=== PATIENT | male | born 1965 | race American Indian/Alaskan Native ===

== ENCOUNTER 2017-01-03 09:44 | Emergency (ER) | payer SELFPAY ==
[2017-01-03 10:11] VITALS: BP 131/78
[2017-01-03] MEDS ORDERED: NACL 0.9% 1000 ML 1,000 ML IV ONE (10:12)
[2017-01-03 10:37] LABS: Basophils % (Auto) 0.8 % (0.0-1.8); Eosinophils % (Auto) 1.7 % (0.0-4.3); Hematocrit 23.1 % (35.5-45.6); Hemoglobin 6.9 gm/dl (11.8-15.2); Mean Corpuscular HGB Conc 30 % (32-34); Mean Corpuscular Hemoglobin 21 pg (28-32); Mean Corpuscular Volume 70 fl (84-94); Platelet Count 249 K/mm3 (140-440); Red Cell Distribution Width 19.2 % (13.2-15.2); White Blood Count 4.6 K/mm3 (4.5-11.0)
[2017-01-03 10:49] LABS: INR 1.01 (0.87-1.13)
[2017-01-03 10:50] LABS: Partial Thromboplastin Time 28.8 Sec. (24.2-36.6)
[2017-01-03 10:52] LABS: Alanine Aminotransferase 16 units/L (7-56); Albumin 4.1 g/dL (3.9-5); Albumin/Globulin Ratio 1.3 %; Alkaline Phosphatase 44 units/L (35-129); Anion Gap 15 mmol/L; BUN/Creatinine Ratio 13; Blood Urea Nitrogen 9 mg/dL (9-20); Calcium 8.5 mg/dL (8.4-10.2); Carbon Dioxide 25 mmol/L (22-30); Chloride 102.4 mmol/L (98-107); Glucose 77 mg/dL (75-100); Lipase 31 units/L (13-60); Potassium 3.2 mmol/L (3.6-5.0); Sodium 139 mmol/L (137-145); Total Protein 7.2 g/dL (6.3-8.2)
== END 2017-01-03 10:30 | disposition left against medical advice (07) ==
LOC: ED 09:44
DX: D64.9 Anemia, unspecified (principal); Z53.21 Procedure and treatment not carried out due to patient leaving prior to being seen by health care provider
CPT/HCPCS: 36415; 80053; 83690; 85025; 85610; 85730; 86850; 86900; 86901; J7030

== ENCOUNTER 2017-08-21 08:53 | Inpatient (IN) | payer SELFPAY ==
[2017-08-21] MEDS ORDERED: NACL 0.9% 1000 ML 1,000 ML IV ONE (09:04)
[2017-08-21 10:03] LABS: Basophils % (Auto) 0.6 % (0.0-1.8); Eosinophils # (Auto) 0.1 K/mm3 (0.0-0.4); Eosinophils % (Auto) 1.1 % (0.0-4.3); Lymphocytes % (Auto) 16.1 % (13.4-35.0); Mean Corpuscular HGB Conc 30 % (32-34); Monocytes # (Auto) 0.6 K/mm3 (0.0-0.8); Monocytes % (Auto) 9.2 % (0.0-7.3); Platelet Count 291 K/mm3 (140-440); Red Blood Count 2.51 M/mm3 (3.65-5.03); Red Cell Distribution Width 19.5 % (13.2-15.2)
[2017-08-21 10:14] LABS: INR 0.9 (0.87-1.13); Mean Corpuscular Hemoglobin 20 pg (28-32); Mean Corpuscular Volume 69 fl (84-94)
[2017-08-21 10:16] LABS: Hematocrit 17.3 % (35.5-45.6); Hemoglobin 5.1 gm/dl (11.8-15.2)
[2017-08-21 10:20] LABS: Alanine Aminotransferase 8 units/L (7-56); Albumin 4.1 g/dL (3.9-5); BUN/Creatinine Ratio 17; Blood Urea Nitrogen 12 mg/dL (9-20); Calcium 8.6 mg/dL (8.4-10.2); Hemolysis Index 0; Lipase 38 units/L (13-60)
[2017-08-21] MEDS ORDERED: NACL 0.9% 500 ML 500 ML IV ONE (10:24)
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
[2017-08-21] MEDS ORDERED: TYLENOL PO PRN (12:13)
[2017-08-21] MEDS ORDERED: ZOFRAN IV PRN (12:13)
[2017-08-21] MEDS ORDERED: AMBIEN PO PRN (12:13)
[2017-08-21] MEDS ORDERED: MIRALAX 3350 PO PRN (12:13)
--- NOTE | 2017-08-21 12:18 | History and Physical Report ---
History of Present Illness Date of examination: 08/21/17 Date of admission: 08/21/17 11:44 Chief complaint: SOB and blood in stool History of present illness: Mr. Syed is a 51 year-old man with history of diet controlled hypertension, tobacco dependency, alcohol abuse, AOCD, asthma, HIV and hemorrhoids s/p banding (~8 months ago) who presents to [facility] ED with progressive worsening constant exertional shortness of breath for 5 days without aggravating or relieving factors associated with painless intermittent small streaks of bright red blood on tissue paper after bowel movement x 2-3 weeks. He denies chest pain , fever, chills, orthopnea, rectal pains, abd pains, n/v. He reports being compliant with HIV medication which was recently changed per his Infectious Disease doctor. He reports normal CD4+ count, undetectable viral load. PMH: as hpi, EGD and sigmoidoscopy 2014 with 3 hemorrhoid bands placed; this history is confusing because he reports having banding here ~8 months ago. PSH: EGD and sigmoidoscopy SH: tobacco smoking, 1/2ppd, 1 pint of alcohol per day, he drinks [place] vodka, or Cherri etc.. denies drug abuse FH: Brother recently had heart attack in his 50s ROS: Constitutional: denies: fever ENT: denies: throat or neck pain Respiratory: denies: cough, shortness of breath Cardiovascular: denies: chest pain Endocrine: denies unexplained weight loss or gain Gastrointestinal: denies: abdominal pain, nausea Genitourinary: denies: dysuria Rectal: +bleeding, Musculoskeletal: denies swelling, myaglia, muscle weakness Skin: denies: rash Neurological: denies: headache Hematological/Lymphatic: denies: easy bleeding or easy bruising Allergic/Immunologic: no urticaria, no allergic rhinitis, no anaphylaxis Psych: denies sadness or hopelessness, SI/HI Medications and Allergies Allergies Allergy/AdvReac Type Severity Reaction Status Date / Time sulfamethoxazole Allergy Itching Verified 08/21/17 12:29 [From Bactrim] trimethoprim [From Bactrim] Allergy Itching Verified 08/21/17 12:29 Home Medications Medication Instructions Recorded Confirmed Last Taken Type Famotidine [Pepcid] 20 mg PO BID #20 tablet 06/07/15 Unknown Rx Active Meds: Active Medications Sodium Chloride (Nacl 0.9% 1000 Ml) 1,000 mls @ 250 mls/hr IV ONCE ONE Stop: 08/21/17 13:03 Last Admin: 08/21/17 11:35 Dose: Not Given Exam - Physical Exam Narrative exam: GEN: WDWN, NAD, Awake, Alert, Orientated x 3 HEENT: NCAT, EOMI, PERRL, OP Clear NECK: supple, no adenopathy, no thyromegaly, no JVD CVS/HEART: RRR, normal S1S2, pulses present bilaterally CHEST/LUNGS: CTA B, Symmetrical chest expansion, good air entry bilaterally GI/Abdomen: soft, NTND, good bowel sounds, no guarding or rebound /Bladder: no suprapubic tenderness, no CVA or paraspinal tenderness EXT/Skin: no c/c/e, no obvious rash MSK: FROM x 4 Neuro: CN 2-12 grossly intact, no new focal deficits Psych: calm - Constitutional Vitals: Temp Pulse Resp BP Pulse Ox 98.0 F 71 18 147/60 98 08/21/17 11:47 08/21/17 11:47 08/21/17 11:47 08/21/17 11:47 08/21/17 11:47 Results - Labs CBC & Chem 7: 08/21/17 09:23 08/21/17 09:23 Labs: Abnormal lab results 08/21/17 08/21/17 08/21/17 Range/Units 09:23 09:23 09:23 RBC 2.51 L (3.65-5.03) M/mm3 Hgb 5.1 L* (11.8-15.2) gm/dl Hct 17.3 L* (35.5-45.6) % MCV 69 L (84-94) fl MCH 20 L (28-32) pg MCHC 30 L (32-34) % RDW 19.5 H (13.2-15.2) % [place] % (Auto) 9.2 H (0.0-7.3) % Lymph # 1.0 L (1.2-5.4) K/mm3 Seg Neutrophils % 73.0 H (40.0-70.0) % Creatinine 0.7 L (0.8-1.5) mg/dL Crossmatch See Detail Assessment and Plan Mr. Syed is a 51 year-old man with history of diet controlled hypertension, tobacco dependency, alcohol abuse, AOCD, asthma, HIV and hemorrhoids s/p banding (~8 months ago) who presents to [facility] ED with progressive worsening constant exertional shortness of breath for 5 days without aggravating or relieving factors associated with painless intermittent small streaks of bright red blood on tissue paper after bowel movement x 2-3 weeks. He denies chest pain , fever, chills, orthopnea, rectal pains, abd pains, n/v. He reports being compliant with HIV medication which was recently changed per his Infectious Disease doctor. He reports normal CD4+ count, undetectable viral load. +FOBT per ED physician with brown stool. Hgb 5.1 * Date: 11/26/14 16:49 Pre-op diagnosis: Iron deficiency anemia, bleeding fro external hemorrhoids, Post-op diagnosis: same Findings: Normal EGD.Sigmoidoscopy to the rectosigmoid normal except thrombosed external hemorrhoids and large internal hemorrhoids. 3 bands placed. No bleeding with either procedure. Anesthesia: MAC Estimated blood loss: none Pathology: none Condition: stable Disposition: floor -Acute on chronic blood loss anemia, possibly related to hemorrhoids: consult GI , transfuse pRBC -GRANADO related to symptomatic anemia: monitor on remote tele for 24 hours, treat the anemia with blood -HIV, he doesn't know his medications: Asked the nurse to call his pharmacy, continue his home antiviral -Tobacco dependency: counseling done, offered nicotine patch -Alcohol abuse: treat with CIWA protocol and thiamine, watch closely for withdraw on remote tele -Iron deficiency anemia: treat with PRBC -DVT prophylaxis: scd only due to anemia stat Transfuse blood and repeat h/h CCT 34 minutes
[2017-08-21] MEDS ORDERED: NACL 0.9% 500 ML 500 ML IV SCH ×2 (14:42→23:45)
[2017-08-21] MEDS ORDERED: HALDOL IV PRN (17:29)
[2017-08-21] MEDS ORDERED: ATIVAN IV PRN ×3 (17:29)
[2017-08-21] MEDS: HABITROL TD SCH ×3 (18:11→22:27)
--- NOTE | 2017-08-21 19:15 | Gastroenterology Consultation ---
History of Present Illness - Reason for Consult Consult date: 08/21/17 rectal bleeding Requesting physician: JANI SINGH - History of Present Illness The patient is a 51-year-old man with a history of hemorrhoidal bleeding in the past who reports that he has had significant hematochezia for the last 3 weeks. He describes brown stool and passage of bright red blood in the commode and on the toilet tissue of sizable amounts at times. He ran out of energy and came severely fatigued and short of breath. He was admitted with severe anemia with a hemoglobin of 5.1. He had a colonoscopy with hemorrhoid banding in 2014 by the records at this hospital. Apparently he did fairly well with minimal bleeding after this procedure until recently. He does report having to push his hemorrhoids back in regularly. No family history of colon cancer. No history of inflammatory bowel disease. Denies weight loss, constipation. He does smoke and has significant alcohol use and 1/2 pint of liquor on a daily basis. Past History Past Medical History: No medical history Past Surgical History: No surgical history Social history: smoking, alcohol abuse Family history: CAD Medications and Allergies Allergies Allergy/AdvReac Type Severity Reaction Status Date / Time sulfamethoxazole Allergy Itching Verified 08/21/17 12:29 [From Bactrim] trimethoprim [From Bactrim] Allergy Itching Verified 08/21/17 12:29 Home Medications Medication Instructions Recorded Confirmed Last Taken Type Famotidine [Pepcid] 20 mg PO BID #20 tablet 06/07/15 Unknown Rx Active Meds: Active Medications Acetaminophen (Tylenol) 650 mg PO Q6H PRN PRN Reason: Non Cardiac Pain or Temp>100.5 Haloperidol Lactate (Haldol) 5 mg IV Q1H PRN PRN Reason: Unrespon. to mult. doses BZD's Sodium Chloride (Nacl 0.9% 500 Ml) 500 mls @ 0 mls/hr IV ONCE STELLA Stop: 08/21/17 23:00 Lorazepam (Ativan) 2 mg IV Q1H PRN PRN Reason: CIWA-Ar 8-15 Lorazepam (Ativan) 4 mg IV Q1H PRN PRN Reason: CIWA-Ar 16-25 Lorazepam (Ativan) 4 mg IV Q15MIN PRN PRN Reason: CIWA-Ar >25 Nicotine (Habitrol) 14 mg TD Q24H STELLA Last Admin: 08/21/17 18:11 Dose: 14 mg Ondansetron HCl (Zofran) 4 mg IV Q4H PRN PRN Reason: Nausea And Vomiting Pantoprazole Sodium (Protonix) 40 mg PO QDAY [facility] Polyethylene Glycol (Miralax 3350) 17 gm PO QDAY PRN PRN Reason: Constipation Thiamine HCl (Vitamin B-1) 100 mg PO QDAY [facility] Zolpidem Tartrate (Ambien) 5 mg PO QHS PRN PRN Reason: Sleep Review of Systems - Review of Systems Constitutional: no weight loss, no weight gain, no fever, no chills Eyes: no change in vision Ears, Nose, Throat: no decreased hearing, no difficulty swallowing Breasts: deferred Cardiovascular: shortness of breath, no chest pain Respiratory: shortness of breath, no cough, no wheezing Gastrointestinal: hematochezia, no abdominal pain, no nausea, no vomiting, no diarrhea, no constipation, no change in bowel habits, no hematemesis Rectal: bleeding, hemorrhoids, no pain Male Genitourinary: deferred Musculoskeletal: no gait dysfunction, no joint pain, no muscle pain Integumentary: no deferred, no rash, no pruritis Neurological: head injury, no paralysis, no weakness Psychiatric: no anxiety Hematologic/Lymphatic: no easy bruising Allergic/Immunologic: no wheezing Exam - Constitutional Vital Signs: Temp Pulse Resp BP Pulse Ox 97.8 F 60 18 119/76 100 08/21/17 17:34 08/21/17 17:34 08/21/17 17:34 08/21/17 17:34 08/21/17 17:34 General appearance: no acute distress, well-nourished - EENT Eyes: PERRL ENT: hearing intact, clear oral mucosa, dentition normal - Neck Neck: supple, normal ROM, no masses or JVD - Respiratory Respiratory effort: normal Respiratory: bilateral: CTA - Breasts Breasts: deferred - Cardiovascular Rhythm: regular Heart Sounds: Present: S1 & S2. Absent: gallop, rub Extremities: pulses intact, No edema, normal color, Full ROM - Gastrointestinal General gastrointestinal: Present: soft, non-tender, non-distended, normal bowel sounds. Absent: hepatomegaly, splenomegaly, mass Rectal Exam: normal exam-external/orifice - Genitourinary Male Genitourinary: deferred - Integumentary Integumentary: Present: clear, warm, dry - Musculoskeletal Musculoskeletal: normal - Neurologic Neurological: alert and oriented x3 - Psychiatric Psychiatric: appropriate mood/affect, intact judgment & insight, memory intact - Labs CBC & Chem 7: 08/21/17 09:23 08/21/17 09:23 Lab Results: Laboratory Results - last 24 hr 08/21/17 08/21/17 08/21/17 09:23 09:23 09:23 WBC 6.1 RBC 2.51 L Hgb 5.1 L* Hct 17.3 L* MCV 69 L MCH 20 L MCHC 30 L RDW 19.5 H Plt Count 291 Lymph % (Auto) 16.1 [place] % (Auto) 9.2 H Eos % (Auto) 1.1 Baso % (Auto) 0.6 Lymph # 1.0 L [place] # 0.6 Eos # 0.1 Baso # 0.0 Seg Neutrophils % 73.0 H Seg Neutrophils # 4.4 PT 12.6 INR 0.90 APTT 25.0 Sodium 142 Potassium 3.6 Chloride 101.9 Carbon Dioxide 24 Anion Gap 20 BUN 12 Creatinine 0.7 L Estimated GFR > 60 BUN/Creatinine Ratio 17 Glucose 83 Calcium 8.6 Total Bilirubin 0.30 AST 27 ALT 8 Alkaline Phosphatase 40 Troponin T Total Protein 7.1 Albumin 4.1 Albumin/Globulin Ratio 1.4 Lipase 38 Blood Type Antibody Screen Crossmatch 08/21/17 08/21/17 09:23 09:23 WBC RBC Hgb Hct MCV MCH MCHC RDW Plt Count Lymph % (Auto) [place] % (Auto) Eos % (Auto) Baso % (Auto) Lymph # [place] # Eos # Baso # Seg Neutrophils % Seg Neutrophils # PT INR APTT Sodium Potassium Chloride Carbon Dioxide Anion Gap BUN Creatinine Estimated GFR BUN/Creatinine Ratio Glucose Calcium Total Bilirubin AST ALT Alkaline Phosphatase Troponin T < 0.010 Total Protein Albumin Albumin/Globulin Ratio Lipase Blood Type B POSITIVE Antibody Screen Negative Crossmatch See Detail Assessment and Plan - Patient Problems (1) Anemia Current Visit: Yes Status: Acute Qualifiers: Anemia type: iron deficiency Iron deficiency anemia type: chronic blood loss Qualified Code(s): D50.0 - Iron deficiency anemia secondary to blood loss (chronic) Plan to address problem: Severe anemia, now status post transfusion. (2) Internal bleeding hemorrhoids Current Visit: No Status: Acute Plan to address problem: Significant rectal bleeding to the point of a hemoglobin of 5.1 over at least several weeks, possibly longer. The patient last had a colonoscopy by history 3 years ago. Needs repeat colonoscopy and hemorrhoid banding. If he continues to bleed post banding thyroid surgery should be considered. Colonoscopy will be done on Wednesday as the patient has been eating a regular diet and cannot be prepared for tomorrow.
[2017-08-21 20:27] LABS: Hematocrit 23.6 % (35.5-45.6); Hemoglobin 7.4 gm/dl (11.8-15.2)
[2017-08-21] MEDS: VITAMIN B-1 PO SCH (22:19)
[2017-08-22 08:37] LABS: Hematocrit 27.5 % (35.5-45.6); Hemoglobin 8.6 gm/dl (11.8-15.2); Mean Corpuscular HGB Conc 31 % (32-34); Mean Corpuscular Volume 78 fl (84-94); Platelet Count 257 K/mm3 (140-440); Red Blood Count 3.52 M/mm3 (3.65-5.03)
[2017-08-22 08:46] LABS: Alanine Aminotransferase 11 units/L (7-56); Albumin 3.5 g/dL (3.9-5); BUN/Creatinine Ratio 15; Blood Urea Nitrogen 9 mg/dL (9-20); Calcium 8.6 mg/dL (8.4-10.2); Hemolysis Index 38
[2017-08-22 08:50] LABS: Mean Corpuscular Hemoglobin 25 pg (28-32); Red Cell Distribution Width 22.7 % (13.2-15.2)
[2017-08-22] MEDS: VITAMIN B-1 PO SCH (10:50)
[2017-08-22] MEDS: PROTONIX PO SCH (10:50)
--- NOTE | 2017-08-22 12:11 | Progress Note ---
Assessment and Plan Assessment and plan: Mr. Syed is a 51 year-old man with history of diet controlled hypertension, tobacco dependency, alcohol abuse, AOCD, asthma, HIV and hemorrhoids s/p banding (~8 months ago) who presents to [facility] ED with progressive worsening constant exertional shortness of breath for 5 days without aggravating or relieving factors associated with painless intermittent small streaks of bright red blood on tissue paper after bowel movement x 2-3 weeks. He denies chest pain , fever, chills, orthopnea, rectal pains, abd pains, n/v. He reports being compliant with HIV medication which was recently changed per his Infectious Disease doctor. He reports normal CD4+ count, undetectable viral load. +FOBT per ED physician with brown stool. Hgb 5.1 * Date: 11/26/14 16:49 Pre-op diagnosis: Iron deficiency anemia, bleeding fro external hemorrhoids, Post-op diagnosis: same Findings: Normal EGD.Sigmoidoscopy to the rectosigmoid normal except thrombosed external hemorrhoids and large internal hemorrhoids. 3 bands placed. No bleeding with either procedure. Anesthesia: MAC Estimated blood loss: none Pathology: none Condition: stable Disposition: floor -Acute on chronic blood loss anemia, possibly related to hemorrhoids: consult GI , transfuse pRBC -GRANADO related to symptomatic anemia: monitor on remote tele for 24 hours, treat the anemia with blood -HIV, he doesn't know his medications: Asked the nurse to call his pharmacy, continue his home antiviral -Tobacco dependency: counseling done, offered nicotine patch -Alcohol abuse with early withdrawal: treat with CIWA protocol and thiamine, watch closely for withdraw on remote tele -Iron deficiency anemia: treat with PRBC -DVT prophylaxis: scd only due to anemia s/p 3 units of PRBC, h/h steady, repeat in am Colonoscopy tomorrow he is getting anxious, suspect early etoh withdrawal, start oral Ativan 0.5 mg, continue CIWA protocol increase dose of nicotine patch CCT 31 minutes History Interval history: Patient was seen and examined. Follow-up on current diagnosis of rectal bleeding , none seen so far. Overnight uneventful. Patient denies any chest pain, shortness breath, nausea/vomiting or severe headaches. Imaging, nursing note, chart, labs and old chart reviewed. Discussed with patient. Hospitalist Physical - Physical exam Narrative exam: GEN: WDWN, NAD, Awake, Alert, Orientated x 3 HEENT: NCAT, EOMI, PERRL, OP Clear NECK: supple, no adenopathy, no thyromegaly, no JVD CVS/HEART: Regular bradycardia, normal S1S2, pulses present bilaterally CHEST/LUNGS: CTA B, Symmetrical chest expansion, good air entry bilaterally GI/Abdomen: soft, NTND, good bowel sounds, no guarding or rebound /Bladder: no suprapubic tenderness, no CVA or paraspinal tenderness EXT/Skin: no c/c/e, no obvious rash MSK: FROM x 4 Neuro: CN 2-12 grossly intact, no new focal deficits Psych: anxious - Constitutional Vitals: Temp Pulse Resp BP Pulse Ox 98.5 F 55 L 18 130/81 98 08/22/17 04:40 08/22/17 04:40 08/22/17 04:40 08/22/17 04:40 08/22/17 04:40 Results - Labs CBC & Chem 7: 08/22/17 08:08 08/22/17 08:08 Labs: Laboratory Last Values WBC 6.8 K/mm3 (4.5-11.0) 08/22/17 08:08 RBC 3.52 M/mm3 (3.65-5.03) L 08/22/17 08:08 Hgb 8.6 gm/dl (11.8-15.2) L 08/22/17 08:08 Hct 27.5 % (35.5-45.6) L 08/22/17 08:08 MCV 78 fl (84-94) L 08/22/17 08:08 MCH 25 pg (28-32) L 08/22/17 08:08 MCHC 31 % (32-34) L 08/22/17 08:08 RDW 22.7 % (13.2-15.2) H 08/22/17 08:08 Plt Count 257 K/mm3 (140-440) 08/22/17 08:08 Lymph % (Auto) 16.1 % (13.4-35.0) 08/21/17 09:23 [place] % (Auto) 9.2 % (0.0-7.3) H 08/21/17 09:23 Eos % (Auto) 1.1 % (0.0-4.3) 08/21/17 09:23 Baso % (Auto) 0.6 % (0.0-1.8) 08/21/17 09:23 Lymph # 1.0 K/mm3 (1.2-5.4) L 08/21/17 09:23 J[place]uld # 0.6 K/mm3 (0.0-0.8) 08/21/17 09:23 Eos # 0.1 K/mm3 (0.0-0.4) 08/21/17 09:23 Baso # 0.0 K/mm3 (0.0-0.1) 08/21/17 09:23 Seg Neutrophils % 73.0 % (40.0-70.0) H 08/21/17 09:23 Seg Neutrophils # 4.4 K/mm3 (1.8-7.7) 08/21/17 09:23 PT 12.6 Sec. (12.2-14.9) 08/21/17 09:23 INR 0.90 (0.87-1.13) 08/21/17 09:23 APTT 25.0 Sec. (24.2-36.6) 08/21/17 09:23 Sodium 139 mmol/L (137-145) 08/22/17 08:08 Potassium 4.1 mmol/L (3.6-5.0) 08/22/17 08:08 Chloride 105.6 mmol/L (98-107) 08/22/17 08:08 Carbon Dioxide 23 mmol/L (22-30) 08/22/17 08:08 Anion Gap 15 mmol/L 08/22/17 08:08 BUN 9 mg/dL (9-20) 08/22/17 08:08 Creatinine 0.6 mg/dL (0.8-1.5) L 08/22/17 08:08 Estimated GFR > 60 ml/min 08/22/17 08:08 BUN/Creatinine Ratio 15 % 08/22/17 08:08 Glucose 86 mg/dL (75-100) 08/22/17 08:08 Calcium 8.6 mg/dL (8.4-10.2) 08/22/17 08:08 Total Bilirubin 0.30 mg/dL (0.1-1.2) 08/22/17 08:08 AST 28 units/L (5-40) 08/22/17 08:08 ALT 11 units/L (7-56) 08/22/17 08:08 Alkaline Phosphatase 42 units/L (35-129) 08/22/17 08:08 Troponin T < 0.010 ng/mL (0.00-0.029) 08/21/17 09:23 Total Protein 6.6 g/dL (6.3-8.2) 08/22/17 08:08 Albumin 3.5 g/dL (3.9-5) L 08/22/17 08:08 Albumin/Globulin Ratio 1.1 % 08/22/17 08:08 Lipase 38 units/L (13-60) 08/21/17 09:23 Blood Type B POSITIVE 08/21/17 09:23 Antibody Screen Negative 08/21/17 09:23 Crossmatch See Detail 08/21/17 09:23
[2017-08-22] MEDS ORDERED: ATIVAN PO SCH (13:00)
[2017-08-22] MEDS: ATIVAN PO SCH (13:06)
[2017-08-22] MEDS: HABITROL TD SCH (13:06)
[2017-08-22] MEDS ORDERED: GOLYTELY PO SCH (16:00)
--- NOTE | 2017-08-22 17:08 | Gastroenterology Progress Note ---
Assessment and Plan - Patient Problems (1) Anemia Current Visit: Yes Status: Acute Qualifiers: Anemia type: iron deficiency Iron deficiency anemia type: chronic blood loss Qualified Code(s): D50.0 - Iron deficiency anemia secondary to blood loss (chronic) (2) Internal bleeding hemorrhoids Current Visit: No Status: Acute (3) GI bleed Current Visit: Yes Status: Acute Qualifiers: GI bleed type/associated pathology: unspecified gastrointestinal hemorrhage type Qualified Code(s): K92.2 - Gastrointestinal hemorrhage, unspecified Plan to address problem: LGI bleeding. Rule out hemorrohoids, neoplasia. Colonoscopy scheduled for tomorrow AM. Subjective Date of service: 08/22/17 Principal diagnosis: hematochezia Interval history: Feels ok. Passing blood with prep just started. Objective - Constitutional Vitals: Temp Pulse Resp BP Pulse Ox 97.7 F 55 L 19 131/77 98 08/22/17 13:05 08/22/17 04:40 08/22/17 13:05 08/22/17 13:05 08/22/17 04:40 General appearance: no acute distress - Neck Neck: supple, normal ROM - Respiratory Respiratory effort: normal Respiratory: bilateral: CTA - Cardiovascular Rhythm: regular - Gastrointestinal General gastrointestinal: Present: soft, non-tender, non-distended, normal bowel sounds - Neurologic Neurological: alert and oriented x3 - Psychiatric Psychiatric: appropriate mood/affect, intact judgment & insight - Labs CBC & Chem 7: 08/22/17 08:08 08/22/17 08:08 Labs: Laboratory Results - last 24 hr 08/21/17 08/21/17 08/22/17 09:23 20:10 08:08 WBC 6.8 RBC 3.52 L Hgb 7.4 L 8.6 L Hct 23.6 L D 27.5 L MCV 78 L MCH 25 L MCHC 31 L RDW 22.7 H Plt Count 257 Sodium Potassium Chloride Carbon Dioxide Anion Gap BUN Creatinine Estimated GFR BUN/Creatinine Ratio Glucose Calcium Total Bilirubin AST ALT Alkaline Phosphatase Total Protein Albumin Albumin/Globulin Ratio Blood Type B POSITIVE Antibody Screen Negative Crossmatch See Detail 08/22/17 08:08 WBC RBC Hgb Hct MCV MCH MCHC RDW Plt Count Sodium 139 Potassium 4.1 Chloride 105.6 Carbon Dioxide 23 Anion Gap 15 BUN 9 Creatinine 0.6 L Estimated GFR > 60 BUN/Creatinine Ratio 15 Glucose 86 Calcium 8.6 Total Bilirubin 0.30 AST 28 ALT 11 Alkaline Phosphatase 42 Total Protein 6.6 Albumin 3.5 L Albumin/Globulin Ratio 1.1 Blood Type Antibody Screen Crossmatch
[2017-08-23] MEDS ORDERED: BENADRYL IV PRN (01:10)
[2017-08-23] MEDS: ATIVAN PO SCH (01:32)
[2017-08-23] MEDS ORDERED: NACL 0.9% 1000 ML 1,000 ML ONE (08:18)
[2017-08-23] MEDS ORDERED: NACL 0.9% 1000 ML 1,000 ML IV SCH (09:00)
[2017-08-23] MEDS ORDERED: DIPRIVAN 10 MG/ML IV ONE ×2 (09:02)
[2017-08-23] MEDS ORDERED: WATER FOR IRRIG STERILE IR ONE (09:36)
[2017-08-23] MEDS ORDERED: WATER FOR IRRIG STERILE ONE (09:36)
[2017-08-23] MEDS ORDERED: INFANTS' GAS RELIEF PO ONE (09:37)
--- NOTE | 2017-08-23 10:08 | Operative Report ---
Operative Report Operative Report: Date of procedure: 08/23/2017 Preprocedure diagnosis: Rectal bleeding and severe anemia Post procedure diagnosis: 2+ internal hemorrhoids, suboptimal prep in the right colon. Procedure: Colonoscopy to the cecum with banding of internal hemorrhoids 4 Endoscopist: Dr. Valente Anesthesia: Monitored anesthesia care per anesthesia department Estimated blood loss: 0 Medications: Monitored anesthesia care. See separate report by anesthesia for details. After careful discussion of the nature and purpose of the procedure as well as details of the technique risks benefits and alternatives the patient gave consent. Please see recent history and physical from the office. The patient was placed in the left lateral decubitus position and medicated per anesthesia. A rectal exam was performed sphincter tone was normal there were no masses palpable. The [place] 570 scope was passed transanally and advanced under continuous direct vision without difficulty to the cecum. The colon was fair in the right colon with there being some areas obscured by formed stool. The cecum reveals no mass lesion although some of the mucosal detail was obscured by stool. The ascending colon was normal and on forward and retroflexed views. The transverse colon, descending colon, and sigmoid colon were normal. 2+ internal hemorrhoids were seen on retroflexed view. There were no mass lesions or ulceration and no evidence of proctitis. The rectum was otherwise normal on forward and retroflexed views. Banding was performed. The colonoscope was withdrawn followed by loading the banding device on 570 upper scope. The scope was reintroduced into the rectum transanally and retroflexed. Bands were placed in a four-quadrant fashion above the dentate line. The procedure was well-tolerated overall and the patient was observed in recovery. Conclusions: 2+ internal hemorrhoids, status post banding 4. Otherwise normal colonoscopy to the cecum. There were no lesions to suggest opportunistic infections related to his HIV status. Plan: Advanced diet. May go home from the GI standpoint with outpatient follow- up in 2 weeks. I will sign off in follow-up in the office. If the patient has recurrent bleeding he may need hemorrhoid surgery. Signed electronically: Joey Valente M.D.
--- NOTE | 2017-08-23 11:04 | Anesthesia Consultation ---
Anesthesia Consult and Med Hx Date of service: 08/23/17 - Airway Anesthetic Teeth Evaluation: Caps ROM Head & Neck: Adequate Mental/Hyoid Distance: Adequate Mallampati Class: Class II Intubation Access Assessment: Probably Good - Pulmonary Exam CTA: Yes - Cardiac Exam Cardiac Exam: RRR - Pre-Operative Health Status ASA Pre-Surgery Classification: ASA3 Proposed Anesthetic Plan: MAC - Pulmonary Hx Smoking: Yes (1/2 pack a day) Hx Asthma: Yes (no recent inhaler use ) - Cardiovascular System Hx Hypertension: Yes (borderline, no home meds) - Hematic Hx Anemia: Yes - Other Systems Hx Alcohol Use: Yes (Pint a day ) Hx Substance Use: Yes (h/o marijuana use) - Additional Comments Anesthesia Medical History Comments: HIV
--- NOTE | 2017-08-23 11:05 | Anesthesia Day of Surgery ---
Anesthesia Day of Surgery - Day of Surgery Patient Examined: Yes Patient H&P Reviewed: Yes Patient is NPO: Yes
[2017-08-23 11:22] VITALS: BP 157/82
[2017-08-23] MEDS: HABITROL TD SCH (11:39)
[2017-08-23] MEDS: VITAMIN B-1 PO SCH (11:40)
[2017-08-23] MEDS: PROTONIX PO SCH (11:40)
--- NOTE | 2017-08-23 12:50 | Discharge Summary ---
Providers - Providers Date of Admission: 08/21/17 11:44 Date of discharge: 08/23/17 Attending physician: JANI SINGH 08/21/17 12:06 Consult to Physician [CONS] Routine Comment: Consulting Provider: OSCAR BURNS Physician Instructions: Reason For Exam: Rectal bleeding, brown stool, hgb 5.1, anemia Primary care physician: DIET COUNSELOR Hospitalization Condition: Stable Hospital course: Mr. Syed is a 51 year-old man with history of diet controlled hypertension, tobacco dependency, alcohol abuse, AOCD, asthma, HIV and hemorrhoids s/p banding (~8 months ago) who presents to [facility] ED with progressive worsening constant exertional shortness of breath for 5 days without aggravating or relieving factors associated with painless intermittent small streaks of bright red blood on tissue paper after bowel movement x 2-3 weeks. He denies chest pain , fever, chills, orthopnea, rectal pains, abd pains, n/v. He reports being compliant with HIV medication which was recently changed per his Infectious Disease doctor. He reports normal CD4+ count, undetectable viral load. +FOBT per ED physician with brown stool. Hgb 5.1 * Date: 11/26/14 16:49 Pre-op diagnosis: Iron deficiency anemia, bleeding fro external hemorrhoids, Post-op diagnosis: same Findings: Normal EGD.Sigmoidoscopy to the rectosigmoid normal except thrombosed external hemorrhoids and large internal hemorrhoids. 3 bands placed. No bleeding with either procedure. Anesthesia: MAC Estimated blood loss: none Pathology: none Condition: stable Disposition: floor -Acute on chronic blood loss anemia related to hemorrhoids s/p 3 units of transfused pRBC, hgb 8.6 -GRANADO related to symptomatic anemia: monitor on remote tele for 24 hours, treat the anemia with blood -HIV, he doesn't know his medications: Asked the nurse to call his pharmacy, continue his home antiviral -Tobacco dependency: counseling done, offered nicotine patch -Alcohol abuse with early withdrawal: treat with CIWA protocol and thiamine, watch closely for withdraw on remote tele -Iron deficiency anemia: treat with PRBC -Left groin jock itch/tinea cruris: topical lamisal, follow up with his ID doctor, whom he still can't remember the doctor's name -DVT prophylaxis: scd only due to anemia "Operative Report: Date of procedure: 08/23/2017 Preprocedure diagnosis: Rectal bleeding and severe anemia Post procedure diagnosis: 2+ internal hemorrhoids, suboptimal prep in the right colon. Procedure: Colonoscopy to the cecum with banding of internal hemorrhoids 4 Endoscopist: Dr. Burns Anesthesia: Monitored anesthesia care per anesthesia department Estimated blood loss: 0 Medications: Monitored anesthesia care. See separate report by anesthesia for details. After careful discussion of the nature and purpose of the procedure as well as details of the technique risks benefits and alternatives the patient gave consent. Please see recent history and physical from the office. The patient was placed in the left lateral decubitus position and medicated per anesthesia. A rectal exam was performed sphincter tone was normal there were no masses palpable. The [place] 570 scope was passed transanally and advanced under continuous direct vision without difficulty to the cecum. The colon was fair in the right colon with there being some areas obscured by formed stool. The cecum reveals no mass lesion although some of the mucosal detail was obscured by stool. The ascending colon was normal and on forward and retroflexed views. The transverse colon, descending colon, and sigmoid colon were normal. 2+ internal hemorrhoids were seen on retroflexed view. There were no mass lesions or ulceration and no evidence of proctitis. The rectum was otherwise normal on forward and retroflexed views. Banding was performed. The colonoscope was withdrawn followed by loading the banding device on 570 upper scope. The scope was reintroduced into the rectum transanally and retroflexed. Bands were placed in a four-quadrant fashion above the dentate line. The procedure was well-tolerated overall and the patient was observed in recovery. Conclusions: 2+ internal hemorrhoids, status post banding 4. Otherwise normal colonoscopy to the cecum. There were no lesions to suggest opportunistic infections related to his HIV status. Plan: Advanced diet. May go home from the GI standpoint with outpatient follow- up in 2 weeks. I will sign off in follow-up in the office. If the patient has recurrent bleeding he may need hemorrhoid surgery. Signed electronically: Oscar Burns M.D." Disposition: - TO HOME OR SELFCARE Time spent for discharge: 35 minutes Core Measure Documentation - Palliative Care Palliative Care/ Comfort Measures: Not Applicable - Core Measures Any of the following diagnoses?: none - VTE Discharge Requirements Deep Vein Thrombosis/Pulmonary Embolism Present on Admission: No Has pt received <5 days of overlap therapy or INR<2.0: No Anticoagulant overlap therapy prescribed at discharge: No Contraindication No Overlap Therapy order at DC: Not Indicated Exam - Physical Exam Narrative exam: GEN: WDWN, NAD, Awake, Alert, Orientated x 3 HEENT: NCAT, EOMI, PERRL, OP Clear NECK: supple, no adenopathy, no thyromegaly, no JVD CVS/HEART: Regular bradycardia, normal S1S2, pulses present bilaterally CHEST/LUNGS: CTA B, Symmetrical chest expansion, good air entry bilaterally GI/Abdomen: soft, NTND, good bowel sounds, no guarding or rebound /Bladder: circ penis, no suprapubic tenderness, no CVA or paraspinal tenderness EXT/Skin: no c/c/e, left groin fungal rash MSK: FROM x 4 Neuro: CN 2-12 grossly intact, no new focal deficits Psych: calm - Constitutional Vitals: Temp Pulse Resp BP Pulse Ox 97.3 F L 53 L 14 157/82 97 08/23/17 11:01 08/23/17 10:30 08/23/17 11:01 08/23/17 11:01 08/23/17 11:01 Plan Activity: other (no strenous activities until cleared by PCP) Diet: regular Additional Instructions: Call your Infectious Disease doctor for first available appointment Follow up with: PRIMARY CAREMD [Primary Care Provider] - 7 Days OSCAR BURNS MD [Staff Physician] - 7 Days Forms: Accompanied Note Prescriptions: Nicotine [Habitrol] 21 mg TD QDAY #30 patch Polyethylene Glycol 3350 [Miralax 3350] 17 gm PO QDAY #30 powd.pack Terbinafine 1% [Lamisil At] 1 applic TP BID #1 tube Thiamine [Vitamin B-1] 100 mg PO QDAY #30 tablet
[2017-08-23] MEDS ORDERED: LAMISIL AT TP SCH (13:00)
== END 2017-08-23 14:15 | disposition home or self-care (01) | DRG 394 ==
LOC: ED 08:53 → 3A 11:44
PROVIDERS: ADMIT Internal Medicine; ATTEND Internal Medicine
PROC: 30233N1 Transfusion of Nonautologous Red Blood Cells into Peripheral Vein, Percutaneous Approach (ICD-10-PCS; 2017-08-21)
PROC: 0W3P8ZZ Control Bleeding in Gastrointestinal Tract, Via Natural or Artificial Opening Endoscopic (ICD-10-PCS; principal; 2017-08-23)
DX: K64.8 Other hemorrhoids (principal); D62 Acute posthemorrhagic anemia; F10.239 Alcohol dependence with withdrawal, unspecified; I10 Essential (primary) hypertension; B35.6 Tinea cruris; F17.210 Nicotine dependence, cigarettes, uncomplicated; J45.909 Unspecified asthma, uncomplicated; Z88.2 Allergy status to sulfonamides; Z88.8 Allergy status to other drugs, medicaments and biological substances; Z71.6 Tobacco abuse counseling; Z82.49 Family history of ischemic heart disease and other diseases of the circulatory system
CPT/HCPCS: 36415; 36430; 80053; 83690; 84484; 85014; 85018; 85025; 85027; 85610; 85730; 86850; 86900; 86901; 86920; 93005; 93010; 99406; J1200; J2704; J7030; J7040; P9016

== ENCOUNTER 2018-06-20 09:00 | Emergency (ER) | payer OTHER ==
[2018-06-20 09:10] VITALS: BP 130/81
[2018-06-20 10:42] LABS: Basophils % (Auto) 0.5 % (0.0-1.8); Eosinophils # (Auto) 0.2 K/mm3 (0.0-0.4); Eosinophils % (Auto) 2.7 % (0.0-4.3); Hematocrit 24.5 % (35.5-45.6); Hemoglobin 7.5 gm/dl (11.8-15.2); Lymphocytes % (Auto) 17.3 % (13.4-35.0); Mean Corpuscular HGB Conc 31 % (32-34); Mean Corpuscular Volume 76 fl (84-94); Monocytes # (Auto) 0.5 K/mm3 (0.0-0.8); Monocytes % (Auto) 8.1 % (0.0-7.3); Platelet Count 167 K/mm3 (140-440); Red Blood Count 3.25 M/mm3 (3.65-5.03)
--- NOTE | 2018-06-20 10:45 | XRay Report ---
Chest 2 views: History: Productive cough. Findings Normal cardiomediastinal silhouette the trachea is midline. No consolidation, pneumothorax or pleural effusion. Impression: No acute cardiopulmonary findings
[2018-06-20 10:49] LABS: Red Cell Distribution Width 21.9 % (13.2-15.2)
[2018-06-20 11:02] LABS: BUN/Creatinine Ratio 10; Blood Urea Nitrogen 6 mg/dL (9-20); Calcium 8.4 mg/dL (8.4-10.2); Hemolysis Index 4
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
== END 2018-06-20 11:46 | disposition home or self-care (01) ==
LOC: ED 09:00
DX: J20.9 Acute bronchitis, unspecified (principal); D50.9 Iron deficiency anemia, unspecified; Z21 Asymptomatic human immunodeficiency virus [HIV] infection status; F17.200 Nicotine dependence, unspecified, uncomplicated; I10 Essential (primary) hypertension; J45.909 Unspecified asthma, uncomplicated; Z88.2 Allergy status to sulfonamides
CPT/HCPCS: 36415; 71046; 80048; 85025; 99283

== ENCOUNTER 2019-05-24 11:04 | Emergency (ER) | payer SELFPAY ==
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
[2019-05-24 13:52] LABS: Basophils % (Auto) 0.8 % (0.0-1.8); Eosinophils % (Auto) 0.3 % (0.0-4.3); Lymphocytes # (Auto) 0.8 K/mm3 (1.2-5.4); Lymphocytes % (Auto) 21.8 % (13.4-35.0); Mean Corpuscular HGB Conc 29 % (32-34); Monocytes # (Auto) 0.4 K/mm3 (0.0-0.8); Monocytes % (Auto) 11.6 % (0.0-7.3); Platelet Count 169 K/mm3 (140-440); Red Blood Count 3.81 M/mm3 (3.65-5.03)
[2019-05-24 14:02] LABS: INR 0.91 (0.87-1.13)
[2019-05-24 14:03] LABS: Partial Thromboplastin Time 27.4 Sec. (24.2-36.6)
[2019-05-24 14:04] LABS: Hematocrit 25.9 % (35.5-45.6); Hemoglobin 7.6 gm/dl (11.8-15.2); Mean Corpuscular Volume 68 fl (84-94); Red Cell Distribution Width 20.9 % (13.2-15.2)
[2019-05-24 14:07] LABS: Alanine Aminotransferase 17 units/L (7-56); BUN/Creatinine Ratio 8; Blood Urea Nitrogen 6 mg/dL (9-20); Calcium 8.6 mg/dL (8.4-10.2); Hemolysis Index 6
[2019-05-24 17:29] VITALS: BP 115/80
== END 2019-05-24 16:16 | disposition home or self-care (01) ==
LOC: ED 11:04
DX: K64.4 Residual hemorrhoidal skin tags (principal); D50.0 Iron deficiency anemia secondary to blood loss (chronic); I10 Essential (primary) hypertension; J45.909 Unspecified asthma, uncomplicated; F17.200 Nicotine dependence, unspecified, uncomplicated; Z88.8 Allergy status to other drugs, medicaments and biological substances; Z88.2 Allergy status to sulfonamides; Z79.899 Other long term (current) drug therapy; Z21 Asymptomatic human immunodeficiency virus [HIV] infection status; Z98.890 Other specified postprocedural states
CPT/HCPCS: 36415; 71046; 80053; 85025; 85610; 85730; 86850; 86900; 86901; 99283

== ENCOUNTER 2020-07-05 14:51 | Emergency (ER) | payer SELFPAY ==
[2020-07-05 16:06] LABS: Hematocrit 23.6 % (35.5-45.6); Hemoglobin 6.9 gm/dl (11.8-15.2); Mean Corpuscular HGB Conc 29 % (32-34); Platelet Count 245 K/mm3 (140-440)
[2020-07-05 16:13] LABS: Mean Corpuscular Volume 67 fl (84-94); Red Cell Distribution Width 23.6 % (13.2-15.2)
--- NOTE | 2020-07-05 18:06 | Event Note ---
ED Screening Note Date of service: 07/05/20 Time: 18:04 ED Screening Note: 54-year-old male patient with history of anemia and HIV presents to the emergency department for evaluation of abnormal labs. Patient had blood work performed on an outpatient basis and he received a phone call instructing him to come to the emergency department for blood transfusion. Hemoglobin was less than 7. Patient states he has been experiencing generalized weakness and dyspnea on exertion for several days. He has also noticed black stools for several months. He was diagnosed with anemia last year and received a blood transfusion. However, the underlying cause of his anemia was not identified. General: Awake, appropriately interactive, no acute distress. Neck: Supple. Full range of motion intact. Cardiovascular: Normal peripheral perfusion. Pulmonary: No respiratory distress. Patient is speaking normally without use of accessory muscles. Skin: No apparent rashes or lesions. Neurological: No facial asymmetry. Speech is clear. Follows commands. Patient is alert and oriented. Musculoskeletal: Moves all four extremities spontaneously with normal range of motion. Psych: Cooperative. Appropriate mood and affect. I have greeted and performed a focused rapid initial assessment of this patient. A comprehensive ED assessment and evaluation of the patient, analysis of all test results, and completion of the medical decision-making process will be conducted by additional ED providers. This initial assessment/diagnostic orders/clinical plan/treatment(s) is/are subject to change based on patients health status, clinical progression and re-assessment. Further treatment and workup at subsequent clinical provider's discretion. Patient/guardian urged not to elope from the ED as their condition may be serious if not clinically assessed and managed.
[2020-07-05 19:00] LABS: INR 1.04 (0.87-1.13)
[2020-07-05 19:05] LABS: Alanine Aminotransferase 10 units/L (7-56); Albumin 4.3 g/dL (3.9-5); BUN/Creatinine Ratio 13; Blood Urea Nitrogen 12 mg/dL (9-20); Calcium 8.7 mg/dL (8.4-10.2); Hemolysis Index 0
[2020-07-06] MEDS ORDERED: SODIUM CHLORIDE 0.9% 500 ML 500 ML IV ONE (00:28)
[2020-07-06] MEDS ORDERED: POTASSIUM CHLORIDE ER 20 MEQ TAB PO ONE (00:33)
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
[2020-07-06 03:29] VITALS: BP 135/75
== END 2020-07-06 04:04 | disposition home or self-care (01) ==
LOC: ED 14:51
DX: D50.9 Iron deficiency anemia, unspecified (principal); K62.5 Hemorrhage of anus and rectum; I10 Essential (primary) hypertension; J45.909 Unspecified asthma, uncomplicated; F17.200 Nicotine dependence, unspecified, uncomplicated; Z21 Asymptomatic human immunodeficiency virus [HIV] infection status; Z98.890 Other specified postprocedural states; Z88.2 Allergy status to sulfonamides; Z88.8 Allergy status to other drugs, medicaments and biological substances; Z79.899 Other long term (current) drug therapy
CPT/HCPCS: 36415; 36430; 80053; 83735; 84484; 85027; 85610; 85730; 86850; 86900; 86901; 86920; 96360; 96361; 99283; J7040; P9016